=== PATIENT | female | born 1995 | race Two or more races ===

== ENCOUNTER 2021-02-08 22:17 | Emergency (ER) | payer OTHER ==
[~2021-02-08] VITALS: Ht 157.5 cm; Wt 59.0 kg
[2021-02-09] MEDS ORDERED: PROTONIX20 MG PO (02:48)
[2021-02-09] MEDS ORDERED: CARAFATE1 GM PO (02:48)
[2021-02-09] MEDS ORDERED: PEPCID AC20 MG PO (02:48)
[2021-02-09] MEDS ORDERED: INTESTINEX680 M2 PO (02:49)
== END 2021-02-09 03:02 | disposition home or self-care (01) ==
LOC: ER 22:17
DX: R10.13 Epigastric pain (principal); K29.70 Gastritis, unspecified, without bleeding